=== PATIENT | male | born 1990 | race Caucasian/White ===

== ENCOUNTER 2017-06-22 09:43 | Emergency (ER) | payer MEDICAID, OTHER ==
[2017-06-22] MEDS ORDERED: NORMAL SALINE 1000 ML 1,000 ML IV ONE (10:00)
--- NOTE | 2017-06-22 10:02 | ER Document Report ---
ED Medical Screen (RME) - General Chief Complaint: Nausea/Vomiting Stated Complaint: VOMITING Time Seen by Provider: 06/22/17 10:00 Mode of Arrival: Wheelchair Information source: Patient TRAVEL OUTSIDE OF THE [place] IN LAST 30 DAYS: No - HPI Patient complains to provider of: vomiting Onset: This morning - pt. states he has repeated vomiting since earlier this am. Denies diarrhea. States this has happened in the past. He is actively vomiting in triage - Related Data Allergies/Adverse Reactions: tramadol [Tramadol] Allergy (Verified 09/10/14 18:03) Home Medications: Current Home Medications Buprenorphine HCl/Naloxone HCl [Suboxone 8 mg-2 mg Sl Film] 1 film SL DAILY 10/04 [History] Bupropion HCl [Wellbutrin Xl] 300 mg PO DAILY 06/22/17 [History] Gabapentin 100 mg PO BID 06/22/17 [History] Past Medical History - Social History Chew tobacco use (# tins/day): No Frequency of alcohol use: None Drug Abuse: None Neurological Medical History: Reports: Hx Seizures Renal/ Medical History: Denies: Hx Peritoneal Dialysis GI Medical History: Reports: Hx Gastroesophageal Reflux Disease Psychiatric Medical History: Reports: Hx Anxiety, Hx Depression, Hx Post Traumatic Stress Disorder - Immunizations Hx Diphtheria, Pertussis, Tetanus Vaccination: No Physical Exam - Vital signs Vitals: Temp Pulse Resp BP Pulse Ox 98.2 F 57 L 18 160/103 H 100 06/22/17 09:50 06/22/17 09:50 06/22/17 09:50 06/22/17 09:50 06/22/17 09:50 Course - Vital Signs Vital signs: Temp Pulse Resp BP Pulse Ox 98.2 F 57 L 18 160/103 H 100 06/22/17 09:50 06/22/17 09:50 06/22/17 09:50 06/22/17 09:50 06/22/17 09:50
[2017-06-22] MEDS ORDERED: ONDANSETRON HCL INJ/PF 4 MG/2 ML SDV IV ONE ×2 (10:22→12:44)
[2017-06-22 10:30] LABS: ABSOLUTE BASOPHILS # (AUTO) 0.1 10^3/uL (0.0-0.2); ABSOLUTE LYMPHOCYTES (AUTO) 0.8 10^3/uL (0.5-4.7); ABSOLUTE MONOCYTES (AUTO) 0.5 10^3/uL (0.1-1.4); ABSOLUTE NEUT (AUTO) 11.9 10^3/uL (1.7-8.2); BASOPHILS % (AUTO) 0.4 % (0-2); EOSINOPHILS % (AUTO) 0.3 % (0-6); HEMATOCRIT 39.7 % (37.9-51.0); HEMOGLOBIN 12.7 g/dL (13.5-17.0); HGB HCT DIFFERENCE -1.6; LYMPHOCYTES % (AUTO) 6.1 % (13-45); MEAN CORPUSCULAR HEMOGLOBIN 23.9 pg (27.0-33.4); MEAN CORPUSCULAR HGB CONC 32.1 g/dL (32.0-36.0); MEAN CORPUSCULAR VOLUME 75 fl (80-97); MONOCYTES % (AUTO) 3.5 % (3-13); RED BLOOD COUNT 5.34 10^6/uL (4.35-5.55); RED CELL DISTRIBUTION WIDTH 17.9 % (11.5-14.0); SEGMENTED NEUTROPHILS % (AUTO) 89.7 % (42-78); WHITE BLOOD COUNT 13.3 10^3/uL (4.0-10.5)
[2017-06-22] MEDS ORDERED: DIPHENHYDRAMINE HCL 50 MG/ML VIAL IV ONE (10:33)
[2017-06-22] MEDS ORDERED: PROCHLORPERAZINE EDISYLATE INJ 10 MG/2 ML VIAL IV ONE (10:33)
[2017-06-22 10:42] LABS: ALANINE AMINOTRANSFERASE 28 U/L (21-72); ALBUMIN 5.1 g/dL (3.5-5.0); ALKALINE PHOSPHATASE 66 U/L (38-126); ANION GAP 14 (5-19); ASPARTATE AMINO TRANSFERASE 20 U/L (17-59); BILIRUBIN,DIRECT 0.3 mg/dL (0.0-0.4); BILIRUBIN,TOTAL 0.8 mg/dL (0.2-1.3); BLOOD UREA NITROGEN 11 mg/dL (7-20); CALCIUM 9.9 mg/dL (8.4-10.2); CARBON DIOXIDE 25 mmol/L (22-30); CHLORIDE 104 mmol/L (98-107); CREATININE RESULT 0.72 mg/dL (0.52-1.25); GLUCOSE 134 mg/dL (75-110); LIPASE 64.8 U/L (23-300); POTASSIUM 4.2 mmol/L (3.6-5.0); SODIUM 143.3 mmol/L (137-145); TOTAL PROTEIN 7.6 g/dL (6.3-8.2)
--- NOTE | 2017-06-22 11:05 | ER Document Report ---
ED GI/ - General Chief Complaint: Nausea/Vomiting Stated Complaint: VOMITING Time Seen by Provider: 06/22/17 10:00 Mode of Arrival: Wheelchair Information source: Patient, Parent Notes: Patient is a 27-year-old male comes emergency room coming by his father with a complaint of continuous intractable vomiting. Patient states that he has a history of cyclic type of vomiting. He he has a history of PTSD and is treated with indications for this. He also has a history of narcotic abuse however he has been straight for 4 years according to both patient and father. He is currently being tapered off of Suboxone and is down to 1 mg daily. Patient states that he has to wake up at 5:00 in the morning in order to take his Nexium and his Zofran. Then he might make it without vomiting that day if it catches his symptoms on time. However most of the time now patient is waking up at 5 AM taking those meds and he is still having hours of vomiting. He comes in today with the onset of vomiting this morning mostly greenish kind of bile since around 6 AM. Patient also states that he currently takes Zofran Nexium Suboxone is on medical marijuana that he was placed on in [place]. Patient denies any other medical problems with the exception of those mentioned for PTSD. Patient also informs me that he is currently seeing a GI specialist . Patient states he saw him on the of this months for the first time. He is also informing me that he is been given a prescription for an outpatient gallbladder ultrasound ,Also mentions that he has recently had an upper diascopy that showed he has a large hiatal hernia. TRAVEL OUTSIDE OF THE [place] IN LAST 30 DAYS: No - HPI Patient complains to provider of: Abdominal pain, Vomiting. No: Diarrhea, Dysuria, Feeding tube problem, Flank pain, Mcneill catheter problem, Groin pain, Hematuria, Testicular pain, Urinary retention, Other Onset: This morning Timing/Duration: Sudden, Constant, Persistent Quality of pain: Cramping, Sharp Severity at maximum: Severe Severity in ED: Severe Pain Level: 4 Context: Other - Unknown Location: Other - Diffuse nonspecific abdominal tenderness Adult Front & Back Diagram: 1 - Area of discomfort but nonspecific Sexual history: Active Associated symptoms: Loss of appetite, Nausea, Vomiting Exacerbated by: Food, Other - Unknown cause Relieved by: Other - Medication i.e. Zofran, Nexium Similar symptoms previously: Yes Recently seen / treated by doctor: Yes - Related Data Allergies/Adverse Reactions: tramadol [Tramadol] Allergy (Verified 09/10/14 18:03) Home Medications: Current Home Medications Buprenorphine HCl/Naloxone HCl [Suboxone 8 mg-2 mg Sl Film] 1 film SL DAILY 10/04 [History] Bupropion HCl [Wellbutrin Xl] 300 mg PO DAILY 06/22/17 [History] Gabapentin 100 mg PO BID 06/22/17 [History] Past Medical History - General Information source: Patient, Parent - Social History Smoking Status: Former Smoker Chew tobacco use (# tins/day): No Smoking Education Provided: No Frequency of alcohol use: None Drug Abuse: None Lives with: Family, Parents, Spouse/Significant other Family History: Reviewed & Not Pertinent, Hypertension Patient has suicidal ideation: No Patient has homicidal ideation: No Neurological Medical History: Reports: Hx Seizures Renal/ Medical History: Denies: Hx Peritoneal Dialysis GI Medical History: Reports: Hx Gastroesophageal Reflux Disease Psychiatric Medical History: Reports: Hx Anxiety, Hx Depression, Hx Post Traumatic Stress Disorder - Immunizations Hx Diphtheria, Pertussis, Tetanus Vaccination: No Review of Systems - Review of Systems Constitutional: Weakness EENT: No symptoms reported Cardiovascular: No symptoms reported Respiratory: No symptoms reported Gastrointestinal: Abdominal pain, Nausea, Vomiting, Poor appetite Genitourinary: No symptoms reported Male Genitourinary: No symptoms reported Musculoskeletal: No symptoms reported Skin: No symptoms reported Hematologic/Lymphatic: No symptoms reported Neurological/Psychological: No symptoms reported -: Yes All other systems reviewed and negative Physical Exam - Vital signs Vitals: Temp Pulse Resp BP Pulse Ox 98.2 F 57 L 18 160/103 H 100 06/22/17 09:50 06/22/17 09:50 06/22/17 09:50 06/22/17 09:50 06/22/17 09:50 Interpretation: Hypertensive - General General appearance: Anxious, Other - On physical exam as patient will write in a wheelchair being pushed by the nurse patient was actively vomiting and retching hard. On examination in room 6 patient was constantly vomiting and retching. Patient is bringing up again clear to greenish color mucus. Patient appears exceptionally uncomfortable. - HEENT Head: Normocephalic, Atraumatic Ears: Normal External canal: Normal Tympanic membrane: Normal. No: Bulging, Hemotympanum, Injected, Loss of landmarks, Perforation, Purulent effusion, Retracted, Serous effusion, Other Nasal: Normal Mouth/Lips: Normal. No: Angioedema, Caries, Dental fracture, Laceration, Lesions, Other Mucous membranes: Dry Pharynx: Normal Neck: Normal - Respiratory Respiratory status: No respiratory distress Chest status: Nontender Breath sounds: Normal Chest palpation: Normal - Abdominal Distension: Distended, Distended bladder Bowel sounds: Hyperactive Tenderness: Tender. No: Nontender, McBurney's point, Valdez's sign, Guarding, Rebound, Other Organomegaly: No organomegaly - Genitourinary Inspection: Normal Tenderness: Nontender - Neurological Neuro grossly intact: Yes Cognition: Normal Orientation: AAOx4 Matt Coma Scale Eye Opening: Spontaneous [place] Coma Scale Verbal: Oriented Matt Coma Scale Motor: Obeys Commands [place] Coma Scale Total: 15 Course - Vital Signs Vital signs: Temp Pulse Resp BP Pulse Ox 98.2 F 57 L 18 160/103 H 100 06/22/17 09:50 06/22/17 09:50 06/22/17 09:50 06/22/17 09:50 06/22/17 09:50 - Laboratory Result Diagrams: 06/22/17 10:08 06/22/17 10:08 Laboratory results interpreted by me: 06/22/17 06/22/17 06/22/17 10:08 10:08 11:10 WBC 13.3 H Hgb 12.7 L MCV 75 L MCH 23.9 L RDW 17.9 H Seg Neutrophils % 89.7 H Lymphocytes % 6.1 L Absolute Neutrophils 11.9 H Glucose 134 H Albumin 5.1 H Urine Protein 100 H Urine Ketones 20 H - Diagnostic Test Radiology reviewed: Reports reviewed - Acute abdominal series was negative for any acute findings. - EKG Interpretation by Me Additional EKG results interpreted by me: 06/22/17 12:35 Patient received Benadryl Compazine for his nausea as well as Zofran. We have given him a liter of fluids which seemed to help all the symptoms. I had a discussion with patient and father at bedside about the possibilities of cyclic vomiting secondary to marijuana use. I gave a handout to the patient about this kind of syndrome and told him to discuss it with his physician. Patient states he is still a little bit nauseated. I offered to give him some Phenergan both and suppository oral form patient has accepted the suppositories as well. Patient's labs come back unremarkable does have a 13.3 white count by believe this is secondary to demargination from his really retching type of vomiting. I have also informed him that he needs to continue follow-up with his GI for further interventions that may lead in other directions. Discharge - Discharge Clinical Impression: Cyclical vomiting syndrome Qualifiers: Vomiting Intractability: intractable Nausea presence: with nausea Qualified Code(s): G43.A1 - Cyclical vomiting, intractable Condition: Good Disposition: HOME, SELF-CARE Instructions: Nausea or Vomiting, Nonspecific ([facility]) Additional Instructions: Home and rest. Clear liquids for the next 24 hours. Highly suggest that you just take sips of fluids which is to include Gatorade type materials not only water. After 24 hours he may try to advance slightly into some broths and bland foods. Since you already have a GI physician contact his office on Friday for a follow-up visit. Discussed with him we have discussed about cyclic vomiting with marijuana. Should you have any concerns or problems in the meantime return to ER for recheck. Prescriptions: Promethazine HCl [Phenergan 25 mg Tablet] 1 tab PO Q6H PRN #20 tablet PRN Reason: Promethazine HCl [Phenergan 25 mg Supp.rect] 1 supp WI Q6H #12 supp.rect
--- NOTE | 2017-06-22 11:05 | RADIOLOGY REPORT (SQ) ---
EXAM DESCRIPTION: ACUTE ABDOMEN SERIES COMPLETED DATE/TIME: 06/22/2017 10:55 am REASON FOR STUDY: vomiting COMPARISON: None. NUMBER OF VIEWS: Three views. TECHNIQUE: Frontal chest, supine abdomen and upright/decubitus abdomen radiographic images acquired. LIMITATIONS: None. FINDINGS: CHEST: Lungs clear of infiltrates. FREE AIR: None. No abnormal gas collections. BOWEL GAS PATTERN: Nonobstructive pattern. No dilated loops or air fluid levels. CALCIFICATIONS: No suspicious calcifications. HARDWARE: None in the abdomen. SOFT TISSUES: No gross mass or suggestion of organomegaly. BONES: No acute fracture. No worrisome bone lesions. OTHER: No other significant finding. IMPRESSION: NO RADIOGRAPHIC EVIDENCE FOR ACUTE ABDOMINAL DISEASE. TECHNICAL DOCUMENTATION: JOB ID: [id number] [employer]- All Rights Reserved
[2017-06-22 11:30] LABS: APPEARANCE,URINE CLOUDY; BILIRUBIN,URINE NEGATIVE (NEGATIVE); GLUCOSE, URINE NEGATIVE (NEGATIVE); KETONES,URINE 20 mg/dL (NEGATIVE); LEUKOCYTE ESTERASE,URINE NEGATIVE (NEGATIVE); NITRITE,URINE NEGATIVE (NEGATIVE); PROTEIN,URINE 100 mg/dL (NEGATIVE); URINE SPECIFIC GRAVITY 1.018; UROBILINOGEN,URINE NEGATIVE mg/dL (<2.0)
[2017-06-22 11:48] LABS: URINE BARBITURATES SCREEN NEGATIVE; URINE METHADONE SCREEN NEGATIVE; URINE OPIATES LOW NEGATIVE; URINE PHENCYCLIDINE SCREEN NEGATIVE
[2017-06-22 13:03] VITALS: BP 151/74
== END 2017-06-22 12:53 | disposition home or self-care (01) ==
LOC: ER 09:43
DX: G43.A1 Cyclical vomiting, in migraine, intractable (principal); Z79.899 Other long term (current) drug therapy; Z87.891 Personal history of nicotine dependence
CPT/HCPCS: 96376; 99283; 96361; 96374; 96375; 36415; 83690; 85025; 80053; 81001; 80307; 74022; J1200; J0780; J2405; J7030